=== PATIENT | female | born 1945 | race Caucasian/White ===

== ENCOUNTER 2023-04-12 21:20 | Inpatient (IN) | payer MEDICARE ==
[~2023-04-12] VITALS: Ht 157.5 cm; Wt 63.5 kg
[2023-04-12] MEDS ORDERED: CLON1TAB12 PO (21:40)
[2023-04-12] MEDS ORDERED: ACET-73 PO (21:40)
[2023-04-12] MEDS ORDERED: PANT40TA49 PO (21:40)
[2023-04-12] MEDS ORDERED: CHLO473M12 MM (21:40)
[2023-04-12] MEDS ORDERED: BISA10SU61 RC (21:40)
[2023-04-12] MEDS ORDERED: QUET25TA PO (21:40)
[2023-04-12] MEDS ORDERED: TRIA5PAS4 DT (21:40)
[2023-04-12] MEDS ORDERED: VENL37.510 PO (21:40)
[2023-04-12] MEDS ORDERED: QUETIAPINE FUMARATE 25 MG TABLET PO ONE (23:15)
[2023-04-12 23:35] LABS: BASOPHILS % (AUTO) 0.2 % (0.0-2.0); DIFFERENTIAL COMMENT 1; EOSINOPHILS # (AUTO) 0.1 K/uL (0.0-0.7); EOSINOPHILS % (AUTO) 0.8 % (0.0-7.0); HEMATOCRIT 44.2 % (31.2-41.9); LYMPHOCYTES # (AUTO) 2.6 K/uL (0.8-4.8); LYMPHOCYTES % (AUTO) 33.2 % (20.5-51.5); MEAN CORPUSCULAR HGB CONC 34 g/dL (32.3-35.6); MEAN CORPUSCULAR VOLUME 88.3 fL (75.5-95.3); MONOCYTES # (AUTO) 0.5 K/uL (0.1-1.30); MONOCYTES % (AUTO) 6.1 % (0.0-11.0); NEUTROPHILS # (AUTO) 4.6 K/uL (1.8-8.9); NEUTROPHILS % (AUTO) 59.7 % (38.5-71.5); PLATELET COUNT (AUTO) 230 K/uL (179-408); RED CELL DISTRIBUTION WIDTH 13.9 % (12.3-17.7); WHITE BLOOD COUNT (AUTO) 7.8 K/uL (3.8-11.8)
[2023-04-12 23:38] LABS: CALCIUM 9.4 mg/dL (8.5-10.1); CARBON DIOXIDE 29 mmol/L (21-32); CHLORIDE 103 mmol/L (98-107); CREATININE 1.2 mg/dL (0.6-1.3); GLUCOSE 156 mg/dL (74-106); POTASSIUM 4.7 mmol/L (3.5-5.1); SODIUM SERUM 142 mmol/L (136-145); UREA NITROGEN, BLOOD 10 mg/dL (7-18)
[2023-04-12 23:44] LABS: ALANINE AMINOTRANSFERASE 29 U/L (14-59); ALBUMIN 3.6 g/dL (3.4-5.0); ALKALINE PHOSPHATASE 57 U/L (50-136); ASPARTATE AMINOTRANSFERASE 19 U/L (15-37); BILIRUBIN,DIRECT 0.1 mg/dL (0.0-0.2); BILIRUBIN,TOTAL 0.3 mg/dL (0.2-1.0); ETHANOL < 3 MG/DL (0-10); TOTAL PROTEIN, SERUM 7.8 g/dL (6.4-8.2)
[2023-04-13] MEDS ORDERED: QUETIAPINE FUMARATE 25 MG TABLET ONE (01:58)
[2023-04-13] MEDS ORDERED: QUETIAPINE FUMARATE 25 MG TABLET PO ONE (02:00)
[2023-04-13 02:38] LABS: *BILIRUBIN,URIN NEGATIVE (NEGATIVE); *CLARITY,URINE CLEAR (CLEAR); *COLOR,URINE YELLOW (YELLOW); *KETONES,URINE NEGATIVE (NEGATIVE); *PROTEIN,URINE NEGATIVE (NEGATIVE); *UROBILINOGEN,URINE 0.2 E.U./dl (NORMAL); LEUKOCYTE ESTERASE ,URINE 1+ (NEGATIVE); NITRITE, URINE NEGATIVE (NEGATIVE); UGLUCOSE NEGATIVE (NEGATIVE)
[2023-04-13 02:40] LABS: *BLOOD, URINE TRACE (NEGATIVE)
[2023-04-13 02:53] LABS: *AMPHETAMINE, URINE NEGATIVE (NEGATIVE); *BARBITURATE, URINE NEGATIVE (NEGATIVE); *BENZODIAZEPINE, URINE NEGATIVE (NEGATIVE); *CANNABINOID, URINE NEGATIVE (NEGATIVE); *COCCAINE, URINE NEGATIVE (NEGATIVE); *OPIATE, URINE NEGATIVE (NEGATIVE); *PHENCYCLIDINE SCREEN,URINE NEGATIVE (NEGATIVE); FENTANYL, URINE NEGATIVE (NEGATIVE)
[2023-04-13 03:10] LABS: BACTERIA,URINE MODERATE /HPF (NONE SEEN); SQUAMOUS EPITHELIAL CELL,UR FEW /HPF (NONE SEEN); WBC,URINE 20-50 /HPF (0-3)
[2023-04-13] MEDS ORDERED: MAGNESIUM HYDROXIDE 30 ML LIQUID UDC PO PRN (03:45)
[2023-04-13] MEDS ORDERED: ZOLPIDEM 5 MG TABLET PO PRN (03:45)
[2023-04-13] MEDS ORDERED: BLOOD SUGAR DIAGNOSTIC 1 EACH STRIP VI ONE (03:45)
[2023-04-13] MEDS ORDERED: LORAZEPAM 0.5 MG TABLET PO PRN (03:45)
[2023-04-13 04:23] VITALS: BP 147/79; TEMP 98.2; O2SAT 94
[2023-04-13 08:22] VITALS: BP 160/61; TEMP 98.2; O2SAT 91
[2023-04-13] MEDS: CLONAZEPAM 0.5 MG TABLET PO SCH ×4 (09:34→21:43)
[2023-04-13] MEDS: GABAPENTIN 100 MG CAPSULE PO SCH ×4 (11:23→21:43)
[2023-04-13] MEDS: VENLAFAXINE XR 75 MG TAB.ER.24H PO SCH (11:23)
[2023-04-13] MEDS: CEphaleXIN 500 MG CAPSULE PO SCH ×3 (13:26→21:43)
[2023-04-13 16:29] VITALS: BP 129/50; TEMP 98; O2SAT 96
[2023-04-13 20:00] VITALS: BP 152/65; TEMP 97.9
[2023-04-14] MEDS: diphenhydrAMINE 50 MG CAPSULE PO PRN (00:48)
[2023-04-14] MEDS: ONDANSETRON ODT 4 MG TAB.RAPDIS SL PRN ×2 (04:12→12:58)
[2023-04-14] MEDS: CEphaleXIN 500 MG CAPSULE PO SCH ×3 (06:03→20:23)
[2023-04-14] MEDS: PANTOPRAZOLE SODIUM 40 MG TABLET.DR PO SCH (06:03)
[2023-04-14 08:17] VITALS: BP_SYST 141; BP_DIAS 45; BP_DIAS 95; TEMP 97.8; O2SAT 94
[2023-04-14] MEDS: GABAPENTIN 100 MG CAPSULE PO SCH ×4 (08:40→20:23)
[2023-04-14] MEDS: CLONAZEPAM 0.5 MG TABLET PO SCH ×4 (08:40→20:23)
[2023-04-14] MEDS: VENLAFAXINE XR 75 MG TAB.ER.24H PO SCH (08:40)
[2023-04-14] MEDS: HYDROXYZINE PAMOATE 25 MG CAPSULE PO PRN ×2 (14:56→21:38)
[2023-04-14 16:20] VITALS: BP 141/49; TEMP 98; O2SAT 96
[2023-04-14] MEDS: MAG HYDROX/AL HYDROX/SIMETH 30 ML LIQUID UDC PO PRN (20:31)
[2023-04-14 20:50] VITALS: BP 157/55; TEMP 98.2; O2SAT 95
[2023-04-14] MEDS: ACETAMINOPHEN 325 MG TABLET PO PRN (21:39)
[2023-04-15] MEDS: ONDANSETRON ODT 4 MG TAB.RAPDIS SL PRN ×2 (04:23→14:34)
[2023-04-15] MEDS: diphenhydrAMINE 50 MG CAPSULE PO PRN (04:23)
[2023-04-15] MEDS: CEphaleXIN 500 MG CAPSULE PO SCH ×3 (06:00→20:12)
[2023-04-15] MEDS: PANTOPRAZOLE SODIUM 40 MG TABLET.DR PO SCH (06:36)
[2023-04-15] MEDS: CLONAZEPAM 0.5 MG TABLET PO SCH ×4 (08:37→20:12)
[2023-04-15] MEDS: GABAPENTIN 100 MG CAPSULE PO SCH ×4 (08:37→20:12)
[2023-04-15] MEDS: VENLAFAXINE XR 75 MG TAB.ER.24H PO SCH (08:37)
[2023-04-15 09:00] VITALS: BP 145/63; TEMP 98.6; O2SAT 98
[2023-04-15 16:35] VITALS: BP 132/65; TEMP 98.1; O2SAT 97
[2023-04-15 20:41] VITALS: BP 147/46; TEMP 98.2; O2SAT 91
[2023-04-16] MEDS: HYDROXYZINE PAMOATE 25 MG CAPSULE PO PRN (04:52)
[2023-04-16] MEDS: PANTOPRAZOLE SODIUM 40 MG TABLET.DR PO SCH (04:52)
[2023-04-16] MEDS: CEphaleXIN 500 MG CAPSULE PO SCH ×2 (04:52→14:05)
[2023-04-16] MEDS: VENLAFAXINE XR 75 MG TAB.ER.24H PO SCH (08:35)
[2023-04-16] MEDS: CLONAZEPAM 0.5 MG TABLET PO SCH ×3 (08:35→16:52)
[2023-04-16] MEDS: GABAPENTIN 100 MG CAPSULE PO SCH ×3 (08:37→16:52)
[2023-04-16 08:48] VITALS: BP 161/52; TEMP 98.1; O2SAT 98
[2023-04-16] MEDS: ASPIRIN 81 MG TAB.CHEW PO SCH (10:36)
[2023-04-16 16:15] VITALS: BP 142/55; TEMP 98; O2SAT 97
[2023-04-16 20:00] VITALS: BP 144/55; TEMP 98.4; O2SAT 91
[2023-04-16] MEDS: ATORVASTATIN 20 MG TABLET PO SCH (21:49)
[2023-04-16] MEDS: ONDANSETRON ODT 4 MG TAB.RAPDIS SL PRN (21:50)
[2023-04-17] MEDS: PANTOPRAZOLE SODIUM 40 MG TABLET.DR PO SCH (06:04)
[2023-04-17 07:30] VITALS: BP 160/81; TEMP 98; O2SAT 94
[2023-04-17 08:27] LABS: *BILIRUBIN,URIN NEGATIVE (NEGATIVE); *BLOOD, URINE NEGATIVE (NEGATIVE); *CLARITY,URINE CLEAR (CLEAR); *COLOR,URINE YELLOW (YELLOW); *KETONES,URINE NEGATIVE (NEGATIVE); *PROTEIN,URINE NEGATIVE (NEGATIVE); *UROBILINOGEN,URINE 0.2 E.U./dl (NORMAL); LEUKOCYTE ESTERASE ,URINE NEGATIVE (NEGATIVE); NITRITE, URINE NEGATIVE (NEGATIVE); UGLUCOSE NEGATIVE (NEGATIVE)
[2023-04-17] MEDS: CLONAZEPAM 0.5 MG TABLET PO SCH ×2 (08:32→20:37)
[2023-04-17] MEDS: VENLAFAXINE XR 75 MG TAB.ER.24H PO SCH (08:32)
[2023-04-17] MEDS: ASPIRIN 81 MG TAB.CHEW PO SCH (08:32)
[2023-04-17] MEDS: GABAPENTIN 100 MG CAPSULE PO SCH ×3 (08:33→16:59)
[2023-04-17 15:39] VITALS: BP 153/79; TEMP 98; O2SAT 94
[2023-04-17 20:00] VITALS: BP 150/63; TEMP 99.1; O2SAT 93
[2023-04-17] MEDS: ACETAMINOPHEN 325 MG TABLET PO PRN (20:36)
[2023-04-17] MEDS: ATORVASTATIN 20 MG TABLET PO SCH (20:36)
[2023-04-17] MEDS: MAG HYDROX/AL HYDROX/SIMETH 30 ML LIQUID UDC PO PRN (20:55)
[2023-04-17] MEDS: diphenhydrAMINE 50 MG CAPSULE PO PRN (22:31)
[2023-04-17] MEDS: ONDANSETRON ODT 4 MG TAB.RAPDIS SL PRN (22:32)
[2023-04-18] MEDS: HYDROXYZINE PAMOATE 25 MG CAPSULE PO PRN (01:22)
[2023-04-18] MEDS: PANTOPRAZOLE SODIUM 40 MG TABLET.DR PO SCH (07:28)
[2023-04-18 08:31] VITALS: BP 127/76; TEMP 98; O2SAT 98
[2023-04-18] MEDS: GLUCERNA SHAKE 237 ML CAN PO SCH (09:00)
[2023-04-18] MEDS: ASPIRIN 81 MG TAB.CHEW PO SCH (09:07)
[2023-04-18] MEDS: VENLAFAXINE XR 75 MG TAB.ER.24H PO SCH (09:07)
[2023-04-18] MEDS: GABAPENTIN 100 MG CAPSULE PO SCH ×4 (09:07→20:18)
[2023-04-18] MEDS: TRAMADOL HCL 50 MG TABLET PO PRN (12:15)
[2023-04-18] MEDS ORDERED: PHENAZOPYRIDINE HCL 100 MG TABLET PO SCH (14:00)
[2023-04-18] MEDS ORDERED: BISACODYL 10 MG SUPP.RECT RC ONE (15:30)
[2023-04-18 15:58] VITALS: BP 176/72; TEMP 98; O2SAT 99
[2023-04-18 18:40] VITALS: BP 159/70; O2SAT 98
[2023-04-18 20:15] VITALS: BP 146/74; TEMP 98.1; O2SAT 98
[2023-04-18] MEDS: ATORVASTATIN 20 MG TABLET PO SCH (20:18)
[2023-04-18] MEDS ORDERED: MELATONIN 3 MG TABLET PO SCH (21:00)
[2023-04-19] MEDS: ONDANSETRON ODT 4 MG TAB.RAPDIS SL PRN ×2 (02:03→11:02)
[2023-04-19] MEDS: MAG HYDROX/AL HYDROX/SIMETH 30 ML LIQUID UDC PO PRN ×2 (03:05→10:47)
[2023-04-19] MEDS: PANTOPRAZOLE SODIUM 40 MG TABLET.DR PO SCH (06:38)
[2023-04-19 08:18] VITALS: BP 176/66; TEMP 98.2; O2SAT 98
[2023-04-19] MEDS: GABAPENTIN 100 MG CAPSULE PO SCH ×4 (09:19→20:39)
[2023-04-19] MEDS: VENLAFAXINE XR 75 MG TAB.ER.24H PO SCH (09:19)
[2023-04-19] MEDS: ASPIRIN 81 MG TAB.CHEW PO SCH (09:19)
[2023-04-19] MEDS: busPIRone 5 MG TABLET PO SCH ×3 (09:21→16:31)
[2023-04-19] MEDS: GLUCERNA SHAKE 237 ML CAN PO SCH (09:26)
[2023-04-19] MEDS: HYDROXYZINE PAMOATE 25 MG CAPSULE PO PRN (10:47)
[2023-04-19] MEDS: TRAMADOL HCL 50 MG TABLET PO PRN (17:23)
[2023-04-19] MEDS: AMLODIPINE 5 MG TABLET PO SCH (17:32)
[2023-04-19 20:00] VITALS: BP 139/57; TEMP 97.3; O2SAT 93
[2023-04-19] MEDS: ATORVASTATIN 20 MG TABLET PO SCH (20:39)
[2023-04-19] MEDS: MELATONIN 3 MG TABLET PO SCH (20:40)
[2023-04-20] MEDS: TRAMADOL HCL 50 MG TABLET PO PRN ×3 (00:40→22:44)
[2023-04-20] MEDS: PANTOPRAZOLE SODIUM 40 MG TABLET.DR PO SCH (06:17)
[2023-04-20 08:05] VITALS: BP 175/100; TEMP 98; O2SAT 94
[2023-04-20] MEDS: AMLODIPINE 5 MG TABLET PO SCH (08:11)
[2023-04-20] MEDS: ASPIRIN 81 MG TAB.CHEW PO SCH (08:14)
[2023-04-20] MEDS: busPIRone 5 MG TABLET PO SCH ×3 (08:14→17:32)
[2023-04-20] MEDS: VENLAFAXINE XR 75 MG TAB.ER.24H PO SCH (08:18)
[2023-04-20] MEDS: GLUCERNA SHAKE 237 ML CAN PO SCH (08:25)
[2023-04-20] MEDS: ONDANSETRON ODT 4 MG TAB.RAPDIS SL PRN ×2 (09:08→17:54)
[2023-04-20] MEDS: GABAPENTIN 100 MG CAPSULE PO SCH ×4 (10:24→21:30)
[2023-04-20] MEDS ORDERED: MAGNESIUM HYDROXIDE 30 ML LIQUID UDC PO ONE (12:00)
[2023-04-20] MEDS ORDERED: CLONIDINE HCL 0.1 MG TABLET PO SCH (12:15)
[2023-04-20 15:22] VITALS: BP 193/68; TEMP 98; O2SAT 99
[2023-04-20] MEDS: MAG HYDROX/AL HYDROX/SIMETH 30 ML LIQUID UDC PO PRN (17:53)
[2023-04-20 20:12] VITALS: BP 142/64; TEMP 98.1; O2SAT 96
[2023-04-20] MEDS ORDERED: TRAZODONE 50 MG TABLET PO SCH (21:00)
[2023-04-20] MEDS: ATORVASTATIN 20 MG TABLET PO SCH (21:30)
[2023-04-20] MEDS: MELATONIN 3 MG TABLET PO SCH (21:31)
[2023-04-21] MEDS: diphenhydrAMINE 50 MG CAPSULE PO PRN ×2 (00:03→22:07)
[2023-04-21] MEDS: PANTOPRAZOLE SODIUM 40 MG TABLET.DR PO SCH (07:02)
[2023-04-21 07:30] VITALS: BP 190/56; TEMP 98.1; O2SAT 98
[2023-04-21 08:00] VITALS: BP 173/70; TEMP 98.1; O2SAT 98
[2023-04-21] MEDS: busPIRone 5 MG TABLET PO SCH ×3 (08:53→17:59)
[2023-04-21] MEDS: VENLAFAXINE XR 75 MG TAB.ER.24H PO SCH (08:54)
[2023-04-21] MEDS: ASPIRIN 81 MG TAB.CHEW PO SCH (08:54)
[2023-04-21] MEDS: AMLODIPINE 5 MG TABLET PO SCH (08:54)
[2023-04-21] MEDS: GABAPENTIN 100 MG CAPSULE PO SCH ×4 (08:54→21:03)
[2023-04-21] MEDS: GLUCERNA SHAKE 237 ML CAN PO SCH (08:55)
[2023-04-21 10:15] VITALS: BP 133/58; O2SAT 98
[2023-04-21 17:58] VITALS: BP 130/65; TEMP 97.6; O2SAT 98
[2023-04-21 20:18] VITALS: BP 128/63; TEMP 98.1; O2SAT 93
[2023-04-21] MEDS ORDERED: TRAZODONE 50 MG TABLET PO SCH (21:00)
[2023-04-21] MEDS: TRAZODONE 100 MG TABLET PO SCH (21:03)
[2023-04-21] MEDS: ATORVASTATIN 20 MG TABLET PO SCH (21:03)
[2023-04-21] MEDS: MELATONIN 3 MG TABLET PO SCH (21:04)
[2023-04-22] MEDS: PANTOPRAZOLE SODIUM 40 MG TABLET.DR PO SCH (06:15)
[2023-04-22 07:47] VITALS: BP 149/53; TEMP 98; O2SAT 97
[2023-04-22] MEDS: VENLAFAXINE XR 75 MG TAB.ER.24H PO SCH (08:44)
[2023-04-22] MEDS: busPIRone 5 MG TABLET PO SCH ×3 (08:44→17:19)
[2023-04-22] MEDS: GABAPENTIN 100 MG CAPSULE PO SCH ×4 (08:44→20:19)
[2023-04-22] MEDS: AMLODIPINE 5 MG TABLET PO SCH (08:45)
[2023-04-22] MEDS: GLUCERNA SHAKE 237 ML CAN PO SCH (08:46)
[2023-04-22] MEDS: ASPIRIN 81 MG TAB.CHEW PO SCH (08:51)
[2023-04-22 16:53] VITALS: BP 146/67; TEMP 98; O2SAT 98
[2023-04-22] MEDS: ATORVASTATIN 20 MG TABLET PO SCH (20:19)
[2023-04-22] MEDS: TRAZODONE 100 MG TABLET PO SCH (20:19)
[2023-04-22] MEDS: MELATONIN 3 MG TABLET PO SCH (20:20)
[2023-04-22 20:22] VITALS: BP 158/55; TEMP 98; O2SAT 99
[2023-04-22] MEDS: diphenhydrAMINE 50 MG CAPSULE PO PRN (21:21)
[2023-04-23] MEDS: PANTOPRAZOLE SODIUM 40 MG TABLET.DR PO SCH (06:52)
[2023-04-23 08:01] VITALS: BP 156/55; TEMP 101; O2SAT 94
[2023-04-23] MEDS: busPIRone 5 MG TABLET PO SCH ×3 (08:36→17:02)
[2023-04-23] MEDS: GABAPENTIN 100 MG CAPSULE PO SCH ×4 (08:36→21:34)
[2023-04-23] MEDS: VENLAFAXINE XR 75 MG TAB.ER.24H PO SCH (08:36)
[2023-04-23] MEDS: ASPIRIN 81 MG TAB.CHEW PO SCH (08:36)
[2023-04-23] MEDS: AMLODIPINE 5 MG TABLET PO SCH (08:37)
[2023-04-23] MEDS: GLUCERNA SHAKE 237 ML CAN PO SCH ×2 (08:37→17:03)
[2023-04-23 10:23] VITALS: TEMP 98.7
[2023-04-23 16:09] VITALS: BP 139/51; TEMP 98; O2SAT 93
[2023-04-23 20:01] VITALS: BP 143/44; TEMP 98.3; O2SAT 91
[2023-04-23] MEDS: ATORVASTATIN 20 MG TABLET PO SCH (21:34)
[2023-04-23] MEDS: MELATONIN 3 MG TABLET PO SCH (21:34)
[2023-04-23] MEDS: TRAZODONE 100 MG TABLET PO SCH (21:34)
[2023-04-24] MEDS: PANTOPRAZOLE SODIUM 40 MG TABLET.DR PO SCH (07:06)
[2023-04-24 07:30] VITALS: BP 128/75; TEMP 98; O2SAT 94
[2023-04-24] MEDS ORDERED: BISACODYL 10 MG SUPP.RECT RC PRN (07:30)
[2023-04-24 08:07] LABS: BASOPHILS # (AUTO) 0.1 K/UL (0.0-0.2); BASOPHILS % (AUTO) 0.3 % (0.0-2.0); EOSINOPHILS # (AUTO) 0.1 K/uL (0.0-0.7); EOSINOPHILS % (AUTO) 0.4 % (0.0-7.0); HEMATOCRIT 39.9 % (31.2-41.9); HEMOGLOBIN 13.3 g/dL (10.9-14.3); LYMPHOCYTES # (AUTO) 2.2 K/uL (0.8-4.8); LYMPHOCYTES % (AUTO) 11.5 % (20.5-51.5); MEAN CORPUSCULAR HEMOGLOBIN 29.9 uug (24.7-32.8); MEAN CORPUSCULAR HGB CONC 33 g/dL (32.3-35.6); MEAN CORPUSCULAR VOLUME 89.5 fL (75.5-95.3); MONOCYTES # (AUTO) 1.2 K/uL (0.1-1.30); MONOCYTES % (AUTO) 6.3 % (0.0-11.0); NEUTROPHILS # (AUTO) 15.6 K/uL (1.8-8.9); NEUTROPHILS % (AUTO) 81.5 % (38.5-71.5); PLATELET COUNT (AUTO) 349 K/uL (179-408); RED BLOOD CELL COUNT(AUTO) 4.46 MIL/uL (3.63-4.92); RED CELL DISTRIBUTION WIDTH 13.4 % (12.3-17.7); WHITE BLOOD COUNT (AUTO) 19.2 K/uL (3.8-11.8)
[2023-04-24 08:08] LABS: DIFFERENTIAL COMMENT 1
[2023-04-24 08:17] LABS: CARBON DIOXIDE 29 mmol/L (21-32); CHLORIDE 99 mmol/L (98-107); CREATININE 1.1 mg/dL (0.6-1.3); GLUCOSE 159 mg/dL (74-106); POTASSIUM 3.7 mmol/L (3.5-5.1); SODIUM SERUM 138 mmol/L (136-145); UREA NITROGEN, BLOOD 18 mg/dL (7-18)
[2023-04-24] MEDS: ASPIRIN 81 MG TAB.CHEW PO SCH (08:36)
[2023-04-24] MEDS: VENLAFAXINE XR 75 MG TAB.ER.24H PO SCH (08:36)
[2023-04-24] MEDS: AMLODIPINE 5 MG TABLET PO SCH (08:36)
[2023-04-24] MEDS: GABAPENTIN 100 MG CAPSULE PO SCH ×4 (08:36→20:39)
[2023-04-24] MEDS: busPIRone 5 MG TABLET PO SCH ×3 (08:36→16:54)
[2023-04-24] MEDS: GLUCERNA SHAKE 237 ML CAN PO SCH ×2 (08:37→16:55)
[2023-04-24 15:46] VITALS: BP 125/60; TEMP 98; O2SAT 99
[2023-04-24 20:00] VITALS: BP 142/79; TEMP 97.7; O2SAT 91
[2023-04-24] MEDS: MELATONIN 3 MG TABLET PO SCH (20:39)
[2023-04-24] MEDS: ATORVASTATIN 20 MG TABLET PO SCH (20:39)
[2023-04-24] MEDS: TRAZODONE 100 MG TABLET PO SCH (20:39)
[2023-04-24 21:35] LABS: *BILIRUBIN,URIN NEGATIVE (NEGATIVE); *BLOOD, URINE NEGATIVE (NEGATIVE); *CLARITY,URINE CLEAR (CLEAR); *COLOR,URINE YELLOW (YELLOW); *KETONES,URINE TRACE (NEGATIVE); *PROTEIN,URINE NEGATIVE (NEGATIVE); *UROBILINOGEN,URINE 0.2 E.U./dl (NORMAL); NITRITE, URINE POSITIVE (NEGATIVE); UGLUCOSE NEGATIVE (NEGATIVE)
[2023-04-24 21:36] LABS: LEUKOCYTE ESTERASE ,URINE 3+ (NEGATIVE)
[2023-04-24 21:41] LABS: BACTERIA,URINE FEW /HPF (NONE SEEN); RBC,URINE 0-3 /HPF (0-3)
[2023-04-25] MEDS: PANTOPRAZOLE SODIUM 40 MG TABLET.DR PO SCH (06:23)
[2023-04-25 08:01] VITALS: BP 149/54; TEMP 98; O2SAT 98
[2023-04-25] MEDS: VENLAFAXINE XR 75 MG TAB.ER.24H PO SCH (08:20)
[2023-04-25] MEDS: ASPIRIN 81 MG TAB.CHEW PO SCH (08:20)
[2023-04-25] MEDS: GABAPENTIN 100 MG CAPSULE PO SCH ×2 (08:20→13:08)
[2023-04-25] MEDS: AMLODIPINE 5 MG TABLET PO SCH (08:20)
[2023-04-25] MEDS: busPIRone 5 MG TABLET PO SCH ×2 (08:20→13:08)
[2023-04-25] MEDS: GLUCERNA SHAKE 237 ML CAN PO SCH (08:24)
[2023-04-25 08:25] LABS: BASOPHILS # (AUTO) 0.1 K/UL (0.0-0.2); BASOPHILS % (AUTO) 0.4 % (0.0-2.0); EOSINOPHILS % (AUTO) 0.1 % (0.0-7.0); HEMATOCRIT 38.2 % (31.2-41.9); HEMOGLOBIN 12.9 g/dL (10.9-14.3); LYMPHOCYTES # (AUTO) 1.4 K/uL (0.8-4.8); LYMPHOCYTES % (AUTO) 8.4 % (20.5-51.5); MEAN CORPUSCULAR HEMOGLOBIN 30.5 uug (24.7-32.8); MEAN CORPUSCULAR HGB CONC 34 g/dL (32.3-35.6); MEAN CORPUSCULAR VOLUME 90.2 fL (75.5-95.3); MONOCYTES # (AUTO) 0.7 K/uL (0.1-1.30); MONOCYTES % (AUTO) 4.2 % (0.0-11.0); NEUTROPHILS # (AUTO) 14.2 K/uL (1.8-8.9); NEUTROPHILS % (AUTO) 86.9 % (38.5-71.5); PLATELET COUNT (AUTO) 275 K/uL (179-408); RED BLOOD CELL COUNT(AUTO) 4.24 MIL/uL (3.63-4.92); RED CELL DISTRIBUTION WIDTH 13.6 % (12.3-17.7); WHITE BLOOD COUNT (AUTO) 16.4 K/uL (3.8-11.8)
[2023-04-25 08:31] LABS: DIFFERENTIAL COMMENT 1
[2023-04-25 09:54] LABS: CALCIUM 9.2 mg/dL (8.5-10.1); CARBON DIOXIDE 28 mmol/L (21-32); CHLORIDE 97 mmol/L (98-107); CREATININE 0.8 mg/dL (0.6-1.3); GLUCOSE 205 mg/dL (74-106); MAGNESIUM 2.9 mg/dL (1.8-2.4); PHOSPHOROUS 3.1 mg/dL (2.5-4.9); SODIUM SERUM 134 mmol/L (136-145); UREA NITROGEN, BLOOD 14 mg/dL (7-18)
[2023-04-25 09:59] LABS: POTASSIUM 4.5 mmol/L (3.5-5.1)
[2023-04-25] MEDS ORDERED: SULFAMETH/TRIMETH 800/160 MG TABLET PO SCH (11:00)
[2023-04-25] MEDS ORDERED: ASPI81TA31 PO (14:08)
[2023-04-25] MEDS ORDERED: SULF1TAB48 PO (14:08)
[2023-04-25] MEDS ORDERED: GABA-532 PO (14:08)
[2023-04-25] MEDS ORDERED: ATOR20TA PO (14:08)
[2023-04-25 15:48] VITALS: BP 155/82; TEMP 98; O2SAT 98
== END 2023-04-25 16:15 | disposition home or self-care (01) | DRG 880 ==
LOC: ER 21:23 → GPS 04-13 01:15
PROVIDERS: ADMIT Psychiatry & Neurology Psychiatry; ATTEND Nurse Practitioner Acute Care
DX: F41.1 Generalized anxiety disorder (principal); F11.20 Opioid dependence, uncomplicated; F13.20 Sedative, hypnotic or anxiolytic dependence, uncomplicated; N39.0 Urinary tract infection, site not specified; G89.4 Chronic pain syndrome; G43.909 Migraine, unspecified, not intractable, without status migrainosus; T40.2X5A Adverse effect of other opioids, initial encounter; Y92.009 Unspecified place in unspecified non-institutional (private) residence as the place of occurrence of the external cause; I10 Essential (primary) hypertension; E78.5 Hyperlipidemia, unspecified; K59.00 Constipation, unspecified; M27.69 Other endosseous dental implant failure; F32.A Depression, unspecified; B96.89 Other specified bacterial agents as the cause of diseases classified elsewhere
CPT/HCPCS: 36415; 71045; 83735; 84100; 85025; G0480; Q0162; Q0163